=== PATIENT | female | born 1980 | race African-American/Black ===

== ENCOUNTER 2021-03-01 00:53 | Emergency (ER) | payer MEDICAID, OTHER ==
[~2021-03-01] VITALS: Ht 175.3 cm; Wt 54.4 kg
[2021-03-01 05:01] VITALS: BP 106/70
[2021-03-01] MEDS ORDERED: methylPREDNISolone SOD SUCC 125 MG/2 ML VL IM ONE (05:30)
[2021-03-01] MEDS ORDERED: KETOROLAC TROMETH 60MG/2ML VIAL IM ONE (05:30)
== END 2021-03-01 06:41 | disposition home or self-care (01) ==
LOC: ER 00:53
DX: S13.4XXA Sprain of ligaments of cervical spine, initial encounter (principal); R51.9 Headache, unspecified; R07.89 Other chest pain; M62.838 Other muscle spasm; I10 Essential (primary) hypertension; V43.52XA Car driver injured in collision with other type car in traffic accident, initial encounter; Y93.89 Activity, other specified; Y92.410 Unspecified street and highway as the place of occurrence of the external cause; Y99.8 Other external cause status
CPT/HCPCS: 70450; 71045; 72125; 93005; 96372; 99284; J1885; J2930